=== PATIENT | female | born 1945 ===

== ENCOUNTER 2018-08-03 07:56 | Outpatient (CLI) | payer MEDICARE | END 2018-08-03 07:57 | disposition home or self-care (01) | LOC: C.MRIC 07:56 ==

== ENCOUNTER 2018-08-21 07:30 | Outpatient (CLI) | payer MEDICARE | END 2018-08-21 07:31 | disposition home or self-care (01) | LOC: C.USIC 07:30 ==

== ENCOUNTER 2018-10-21 07:49 | Outpatient (CLI) | payer MEDICARE | END 2018-10-21 07:50 | disposition home or self-care (01) | LOC: C.CTH 07:49 ==